=== PATIENT | male | born 1975 | race American Indian/Alaskan Native ===

== ENCOUNTER 2024-08-13 06:19 | Emergency (ER) | payer OTHER ==
[~2024-08-13] VITALS: Ht 177.8 cm; Wt 81.6 kg
[2024-08-13] MEDS ORDERED: GLUMETZA1000 MG PO (06:31)
[2024-08-13] MEDS ORDERED: JARDIANCE10 MG PO (06:31)
[2024-08-13] MEDS ORDERED: MOUNJARO5 MG/0.5 M SUBCUTANEO (06:32)
[2024-08-13] MEDS ORDERED: ATORVASTATIN CA40 MG PO (06:32)
[2024-08-13 08:05] LABS: INR 1.05; PARTIAL THROMBOPLASTIN TIME 27.5 SECONDS (22.0-34.0); PROTHROMBIN TIME 11.4 SECONDS (9.0-11.5)
[2024-08-13 08:06] LABS: CREATININE SERUM 1.04 mg/dL (0.70-1.30); GFR 75.29; POTASSIUM 4.16 mEq/L (3.5-5.1)
[2024-08-13 08:21] LABS: HEMATOCRIT 47.1 % (39.0-48.0); HEMOGLOBIN 15.7 g/dL (13-16.00); MEAN CELL VOLUME 90.2 fL (80.0-100.00); MEAN CORPUSCULAR HGB CONC 33.3 g/dl (32.0-36.0); PLATELET COUNT 172 K/uL (150-450); RED BLOOD COUNT 5.22 M/uL (4.00-6.00); RED CELL DISTRIBUTION WIDTH 13.8 % (11.5-14.5)
[2024-08-13] MEDS ORDERED: ATORVASTATIN CA80 MG PO (09:19)
== END 2024-08-13 09:30 | disposition home or self-care (01) ==
LOC: ER 06:21
PROVIDERS: General Practice
DX: R20.2 Paresthesia of skin (principal); E11.9 Type 2 diabetes mellitus without complications; Z79.84 Long term (current) use of oral hypoglycemic drugs